=== PATIENT | female | born 1965 | race Caucasian/White ===

== ENCOUNTER 2018-09-03 22:15 | Emergency (ER) | payer OTHER ==
[~2018-09-03] VITALS: Ht 170.2 cm; Wt 72.6 kg
[2018-09-03 22:25] VITALS: BP 138/91
== END 2018-09-03 23:36 | disposition left against medical advice (07) ==
LOC: M.ERS 22:15
DX: Z53.21 Procedure and treatment not carried out due to patient leaving prior to being seen by health care provider (principal)